=== PATIENT | male | born 2000 | race Caucasian/White ===

== ENCOUNTER 2021-04-15 08:21 | Emergency (ER) | payer MEDICAID ==
[~2021-04-15] VITALS: Ht 165.1 cm; Wt 65.0 kg
[2021-04-15 08:23] VITALS: BP 146/92
== END 2021-04-15 09:29 | disposition home or self-care (01) ==
LOC: ER 08:43
DX: Z04.89 Encounter for examination and observation for other specified reasons (principal); Z72.89 Other problems related to lifestyle; R03.0 Elevated blood-pressure reading, without diagnosis of hypertension
CPT/HCPCS: 99283